=== PATIENT | female | born 1995 | race Caucasian/White ===

== ENCOUNTER 2017-02-01 11:25 | Inpatient (IN) | payer OTHER ==
[~2017-02-01] VITALS: Ht 162.6 cm; Wt 76.7 kg
[2017-02-01] VITALS (23 sets, daily range): BP systolic 125–163; BP diastolic 80–107
[~2017-02-01 11:25] MED LIST: MOTRIN600 MG PO
[2017-02-01 13:37] LABS: EOSINOPHIL (%) 0.4 % (0-5); HEMATOCRIT 28.8 % (36.0-46.0); IMMATURE GRANULOCYTE (%) 0.5 % (0.0-0.7); INSTRUMENT ABS NEUTROPHIL CT 5.7 K/uL; LYMPHOCYTE COUNT 1.5 K/uL (1.0-2.8); MCH 26.4 PG (29.0-34.0); MCHC 32.6 G/DL (30.0-36.0); MCV 80.9 FL (83-99); MEAN PLAT.VOLUME 11.9 uM^3 (9.5-12.4); MONOCYTE COUNT 0.4 K/uL (0-0.8); NEUTROPHIL (%) 74.9 % (45-76); NEUTROPHIL COUNT 5.7 K/uL (1.8-6.4); PLATELET COUNT 230 K/uL (156-360); RBC DIS.WIDTH-CV 15.4 % (11.8-14.6); RBC DIS.WIDTH-SD 45.2 % (39-53); RED BLOOD COUNT 3.56 M/uL (3.80-5.20); WHITE BLOOD COUNT 7.6 K/uL (4.1-10.2)
[2017-02-01 13:47] LABS: ANION GAP 12 MEQ/L (2-14); CHLORIDE 105 MEQ/L (99-109); POTASSIUM 3.8 MEQ/L (3.7-5.4); SAMPLE HEMOLYSIS CHECK 0; SAMPLE ICTERIC CHECK 0; SAMPLE LIPEMIA CHECK 0; SODIUM 136 MEQ/L (136-147); TOTAL BILIRUBIN 0.3 MG/DL (0.0-1.0)
[2017-02-01 13:52] LABS: ALKALINE PHOSPHATASE 182 IU/L (3-129); GFR ESTIMATE (CALCULATED) > 59 mL/min/; GLUCOSE 72 mg/dL (70-99); UREA NITROGEN (BUN) 8 mg/dL (9-23)
[2017-02-02] VITALS (15 sets, daily range): BP systolic 120–144; BP diastolic 74–98
[2017-02-02] MEDS ORDERED: IBUPROFEN800 MG PO (12:25)
[2017-02-03 02:00] VITALS: BP 145/96
[2017-02-03 04:00] VITALS: BP 159/82
[2017-02-03 06:48] LABS: EOSINOPHIL (%) 0.6 % (0-5); EOSINOPHIL COUNT 0.1 K/uL (0-0.3); HEMATOCRIT 25.6 % (36.0-46.0); IMMATURE GRANULOCYTE (%) 0.4 % (0.0-0.7); LYMPHOCYTE COUNT 1.7 K/uL (1.0-2.8); MCH 25.8 PG (29.0-34.0); MCHC 31.6 G/DL (30.0-36.0); MCV 81.5 FL (83-99); MEAN PLAT.VOLUME 11.8 uM^3 (9.5-12.4); MONOCYTE (%) 6.7 % (3-12); MONOCYTE COUNT 0.6 K/uL (0-0.8); NEUTROPHIL (%) 74.4 % (45-76); PLATELET COUNT 199 K/uL (156-360); RBC DIS.WIDTH-CV 15.9 % (11.8-14.6); RBC DIS.WIDTH-SD 46.3 % (39-53); RED BLOOD COUNT 3.14 M/uL (3.80-5.20); WHITE BLOOD COUNT 9.4 K/uL (4.1-10.2)
[2017-02-03 07:22] VITALS: BP 125/76
[2017-02-03 11:00] VITALS: BP 136/89
[2017-02-03 14:57] VITALS: BP 138/92
[2017-02-03 19:00] VITALS: BP 144/85
[2017-02-04] VITALS: BP 129/75
[2017-02-04 08:00] VITALS: BP 132/84
[2017-02-04 15:58] VITALS: BP 138/90
== END 2017-02-04 17:32 | disposition home or self-care (01) | DRG 774 ==
LOC: LDRP-OP 11:25 → 2WEST 11:26 → LDRP-OP 03-25 15:21
PROVIDERS: Advanced Practice Midwife; Nurse Practitioner
DX: O15.1 Eclampsia complicating labor (principal); O36.5930 Maternal care for other known or suspected poor fetal growth, third trimester, not applicable or unspecified; O13.4 Gestational [pregnancy-induced] hypertension without significant proteinuria, complicating childbirth; O14.94 Unspecified pre-eclampsia, complicating childbirth; O99.824 Streptococcus B carrier state complicating childbirth; O99.344 Other mental disorders complicating childbirth; F42.9 Obsessive-compulsive disorder, unspecified; O71.4 Obstetric high vaginal laceration alone; M41.9 Scoliosis, unspecified; Z37.0 Single live birth; Z3A.37 37 weeks gestation of pregnancy
CPT/HCPCS: 80053; 82570; 84156; 85025; G0378; J7120

== ENCOUNTER 2017-12-25 22:05 | Emergency (ER) | payer OTHER, BC ==
[~2017-12-25] VITALS: Ht 162.6 cm; Wt 64.1 kg
[~2017-12-25 22:05] MED LIST changes: +IBUPROFEN800 MG PO
[2017-12-26 00:14] VITALS: BP 128/85
== END 2017-12-26 00:14 | disposition home or self-care (01) ==
LOC: EME 22:05
DX: S02.2XXA Fracture of nasal bones, initial encounter for closed fracture (principal); Y04.0XXA Assault by unarmed brawl or fight, initial encounter; Y92.89 Other specified places as the place of occurrence of the external cause; Z88.0 Allergy status to penicillin
CPT/HCPCS: 70150; 99281; 99283